=== PATIENT | female | born 1945 | race Caucasian/White ===

== ENCOUNTER → 2016-09-15 | Outpatient (CLI) | payer OTHER ==
--- NOTE | 2016-09-15 11:55 | MA ---
Screening Digital Mammogram With iCAD Analysis Reason for Examination: Routine screening. A sister was diagnosed with breast cancer in her 60s. Breast parenchymal density: Type C; Heterogeneously dense. Technique: Four views of each breast are obtained including CC and oblique lateral Khadijah (implant di splaced) and non-Khadijah (implant not displaced) views. Digital breast tomosynthesis was performed in the implant-displaced MLO projection with reconstruction at 1.0 mm slice thickness and composite MLO views reconstructed. This examination is processed by the iCAD computer aided detection system. Comparison: August 2015, July 2014, July 2013, July 2012, June 2011, June 2010, June 2009.. Findings: Breast implants are in place bilaterally. iCAD is reviewed.No suspicious areas are identifi ed. There has been no significant change in the appearance of either breast. Breast implants diminish the sensitivity of mammography. Impression: Negative mammogram. BI-RADS 1. Recommendation: Routine screening is recommended in one year as long as physical examination is negat melquiades. [facility] will send a result letter to the patient. Negative mammography should not preclude additional workup of a clinically suspicious finding. The patient's information is entered into a reminder system with a target due date for her next mammo gram.
== END ==
LOC: FIMAGING 08:40
DX: Z12.31 Encounter for screening mammogram for malignant neoplasm of breast (principal); Z80.3 Family history of malignant neoplasm of breast
CPT/HCPCS: G0202

== ENCOUNTER → 2017-09-22 | Outpatient (CLI) | payer OTHER | LOC: FIMAGING 07:47 | PROVIDERS: ATTEND Family Medicine | DX: Z12.31 Encounter for screening mammogram for malignant neoplasm of breast (principal) ==

== ENCOUNTER → 2018-04-19 | Outpatient (CLI) | payer OTHER ==
[~2018-04-19] MED LIST: IOPAMIDOL (ISOVUE 370) 100 ML BTL IV ONE
== END ==
LOC: FIMAGING 11:51
PROVIDERS: ATTEND Surgery
DX: I70.0 Atherosclerosis of aorta (principal); M48.061 Spinal stenosis, lumbar region without neurogenic claudication; M46.96 Unspecified inflammatory spondylopathy, lumbar region; K59.00 Constipation, unspecified
CPT/HCPCS: 74174; Q9967; 82565-PO

== ENCOUNTER 2018-05-02 16:23 | Emergency (ER) | payer OTHER ==
[2018-05-02 16:54] LABS: PLATELET COUNT 229 10^3/uL (150-400)
[2018-05-02] MEDS ORDERED: HYOSCYAMINE SULFATE 0.125 MG TAB PO ONE (17:12)
[2018-05-02] MEDS ORDERED: MAG HYDROX/AL HYDROX/SIMETH 30 ML UDCUP PO ONE (17:12)
[2018-05-02] MEDS ORDERED: LIDOCAINE 2% VISCOUS 15 ML UDCUP PO ONE (17:12)
--- NOTE | 2018-05-02 17:20 | EDPHY ---
H & P Stated Complaint: in [place] in [place] hving stomach issues since/bloating/pain Time Seen by Provider: 05/02/18 17:07 HPI/ROS: CHIEF COMPLAINT: Abdominal cramping, constipation and vomiting HISTORY OF PRESENT ILLNESS: The patient is a 72-year-old female with a history of chronic constipation who comes to the emergency department complaining of constipation, abdominal cramping and occasional vomiting. She states that she and several of her friends went to [place] 2 months ago for their sabianism. After returning home multiple members of the democrat had diarrheal illness including E coli and Giardia. The states that he had some mild diarrhea as well. The patient did not but instead was having abdominal cramping and constipation. She states that she chronically tends toward constipation. She has been trying to take Pepto-Bismol and [place] with minimal improvement. She saw her primary Dr. Ruiz who referred her to Dr. Higginbotham who obtained a CT scan on the of this month that revealed constipation only. She was started on Dulcolax but this made her vomit twice on Wednesday. She has since stopped the laxative but has been using high-fiber diet. She still is having abdominal cramping. No blood in her stool. No vomiting since Wednesday. No chest pain or shortness of breath. She does state that she feels generally weak and fatigued. No fever. Severity: Moderate Modifying factors: Some improvement with Pepto-Bismol REVIEW OF SYSTEMS: Constitutional: denies: chills, fever, recent illness, recent injury EENTM: denies: blurred vision, double vision, nose congestion Respiratory: denies: cough, shortness of breath Cardiac: denies: chest pain, irregular heart rate, lightheadedness, palpitations Gastrointestinal/Abdominal: See HPI Genitourinary: denies: dysuria, frequency, hematuria, pain Musculoskeletal: denies: joint pain, muscle pain Skin: denies: lesions, rash, jaundice, bruising Neurological: denies: headache, numbness, paresthesia, tingling, dizziness, weakness Hematologic/Lymphatic: denies: blood clots, easy bleeding, easy bruising Immunologic/allergic: denies: HIV/AIDS, transplant 10 systems reviewed and negative except as noted EXAM: GENERAL: Well-appearing, well-nourished and in no acute distress. HEAD: Atraumatic, normocephalic. EYES: Pupils equal round and reactive to light, extraocular movements intact, sclera anicteric, conjunctiva are normal. ENT: TMs normal, nares patent, oropharynx clear without exudates. Moist mucous membranes. NECK: Normal range of motion, supple without lymphadenopathy or JVD. LUNGS: Breath sounds clear to auscultation bilaterally and equal. No wheezes rales or rhonchi. HEART: Regular rate and rhythm without murmurs, rubs or gallops. ABDOMEN: Soft, nontender, normoactive bowel sounds. No guarding, no rebound. No masses appreciated. BACK: No CVA tenderness, no spinal tenderness, step-offs or deformities EXTREMITIES: Normal range of motion, no pitting or edema. No clubbing or cyanosis. NEUROLOGICAL: Cranial nerves II through XII grossly intact. Normal speech, normal gait. 5/5 strength, normal movement in all extremities, normal sensation , normal reflexes PSYCH: Normal mood, normal affect. SKIN: Warm, dry, normal turgor, no visible rashes or lesions. Source: Patient Exam Limitations: No limitations - Personal History Current Tetanus Diphtheria and Acellular Pertussis (TDAP): Yes - Medical/Surgical History Hx Asthma: No Hx Chronic Respiratory Disease: No Hx Diabetes: No Hx Cardiac Disease: No Hx Renal Disease: No Hx Cirrhosis: No Hx Alcoholism: No Hx HIV/AIDS: No Hx Splenectomy or Spleen Trauma: No Other PMH: PMH: HTN - Family History Significant Family History: No pertinent family hx - Social History Smoking Status: Never smoked Alcohol Use: Sober Drug Use: None Constitutional: Initial Vital Signs Temperature (C) 36.7 C 05/02/18 16:28 Heart Rate 73 05/02/18 16:28 Respiratory Rate 16 05/02/18 16:28 Blood Pressure 129/90 H 05/02/18 16:28 O2 Sat (%) 93 05/02/18 16:28 O2 Delivery Mode Room Air Allergies/Adverse Reactions: No Known Allergies Allergy (Verified 05/02/18 16:27) Home Medications: Medication Instructions Recorded Zolpidem Tartrate [Ambien] 5 mg PO 03/27/11 Famotidine [Pepcid 20 MG (OTC)] 20 mg PO BID #30 tab 05/02/18 Hyoscyamine Sulfate [Levbid] 0.375 mg PO Q12 #20 tab.sr.12h 05/02/18 Irbesartan-Hctz 150-12.5 mg Tb 05/02/18 LORAZEPAM 05/02/18 Lexapro 05/02/18 Medical Decision Making - Diagnostics EKG Interpretation: An EKG obtained and was read and documented in trace view. Please see trace view for full reading and report. Sinus rhythm, no acute ischemic changes, similar to previous ED Course/Re-evaluation: The patient has no abdominal tenderness on exam. This is a rather chronic problem. We discussed CT scanning and agreed to try and avoid it at this time since she just had 1 about 2 weeks ago in her symptoms are relatively unchanged. I will check lab work and obtain urine and stool samples. I suspect that this is more likely to be gastritis or ulcer and that she will need to follow up with GI for scope. 6:00 p.m. the patient is feeling better after the GI cocktail. Discussed her lab work thus far which is reassuring. The stool sample will not be back for day or 2. We agreed to start her on antacids and have her follow up with GI for possible scope. 7:30 p.m. the patient's abdominal exam remains benign. LFTs are reassuring. She is eager to go home. We discussed follow up with [facility]. We discussed MiraLax as needed for constipation. We discussed antispasmodics and proton pump inhibitors. She feels comfortable with this plan. She had he has an appointment with Dr. Uribe's PA. Differential Diagnosis: Partial list of the Differential diagnosis considered include but were not limited to; gastritis, constipation, peptic ulcer disease and although unlikely based on the history and physical exam, I also considered small-bowel obstruction, diverticulitis, appendicitis, biliary disease, pancreatitis. I discussed these differential diagnoses and the plan with the patient as well as the usual and expected course. The patient understands that the diagnosis is provisional and that in medicine we are not always correct and that further workup is often warranted. Usual and customary warnings were given. All of the patient's questions were answered. The patient was instructed to return to the emergency department should the symptoms at all worsen or return, otherwise to followup with the physician as we discussed. - Data Points Laboratory Results: Laboratory Results 05/02/18 16:45 05/02/18 16:45 Microbiology Results: MICROBIOLOGY 05/02/18 17:30 Unspecified Urine Culture - Final Escherichia Coli Esbl Medications Given: Discontinued Medications Al Hydroxide/Mg Hydroxide (Maalox Susp) 30 ml PO ONCE ONE Stop: 05/02/18 17:13 Last Admin: 05/02/18 17:22 Dose: 30 ml Hyoscyamine Sulfate (Levsin, Hyomax-Sl) 0.25 mg PO ONCE ONE Stop: 05/02/18 17:13 Last Admin: 05/02/18 17:22 Dose: 0.25 mg Lidocaine (Lidocaine 2% Viscous) 15 ml PO ONCE ONE Stop: 05/02/18 17:13 Last Admin: 05/02/18 17:22 Dose: 15 ml Pantoprazole Sodium (Protonix) 40 mg IVP Q6H DAGOBERTO Stop: 10/30/18 00:02 Last Admin: 05/02/18 18:59 Dose: 40 mg Departure - Departure Disposition: Home, Routine, Self-Care Clinical Impression: Epigastric pain Constipation Qualifiers: Constipation type: unspecified constipation type Qualified Code(s): K59.00 - Constipation, unspecified Condition: Fair Instructions: Constipation (DC), Epigastric Pain (ED) Referrals: Michael Ruiz MD [Primary Care Provider] - 2-3 days, call for appt. Cheng Uribe MD [Medical Doctor] - 5-7 days, call for appt. Prescriptions: Famotidine [Pepcid 20 MG (OTC)] 20 mg PO BID #30 tab Hyoscyamine Sulfate [Levbid] 0.375 mg PO Q12 #20 tab.sr.12h
[2018-05-02] MEDS ORDERED: PANTOPRAZOLE SODIUM 40 MG VIAL ONE (18:51)
--- NOTE | 2018-05-02 19:04 | CPEKG ---
Test Reason : OPEN Blood Pressure : / mmHG Vent. Rate : 054 BPM Atrial Rate : 055 BPM P-R Int : 173 ms QRS Dur : 102 ms QT Int : 433 ms P-R-T Axes : 072 063 064 degrees QTc Int : 411 ms Sinus rhythm Atrial premature complex Confirmed by Santo Strickland ([id number]) on 05/02/2018 7:04:06 PM Referred By: Confirmed By:Santo Strickland
[2018-05-02 20:15] VITALS: BP 136/87
[2018-05-03] MEDS ORDERED: PANTOPRAZOLE SODIUM 40 MG VIAL IVP SCH (00:03)
== END 2018-05-02 20:14 | disposition home or self-care (01) ==
DX: R10.13 Epigastric pain (principal); K59.00 Constipation, unspecified; R11.10 Vomiting, unspecified
CPT/HCPCS: 96374

== ENCOUNTER → 2018-05-27 | Outpatient (CLI) | payer OTHER | LOC: FCPNEURO 20:00 | PROVIDERS: ATTEND Internal Medicine Sleep Medicine | DX: G47.33 Obstructive sleep apnea (adult) (pediatric) (principal); G47.36 Sleep related hypoventilation in conditions classified elsewhere; G47.61 Periodic limb movement disorder ==

== ENCOUNTER 2019-01-27 12:42 | Emergency (ER) | payer OTHER | END 2019-01-27 14:54 | disposition home or self-care (01) ==